=== PATIENT | female | born 1990 | race Caucasian/White ===

== ENCOUNTER 2016-10-08 21:50 | Outpatient (CLI) | payer MEDICAID, OTHER ==
[~2016-10-08] VITALS: Ht 165.1 cm; Wt 100.3 kg
[~2016-10-08 21:50] MED LIST: FERR134T PO; FOLI0.8C PO; LABE100T3 PO; PRENAT PO
[2016-10-08 22:14] VITALS: BP 107/66; PULSE 94; Ht 165.1 cm; Wt 100.3 kg
[2016-10-08 23:01] LABS: ADD UMIC NO; URINE BILIRUBIN (Dip) NEGATIVE (NEGATIVE); URINE BLOOD (Dip) NEGATIVE (NEGATIVE); URINE COLOR LT. YELLOW (YELLOW); URINE GLUCOSE (Dip) NEGATIVE (NEGATIVE); URINE KETONES (Dip) NEGATIVE (NEGATIVE); URINE LEUKOCYTE ESTERASE (Dip) NEGATIVE (NEGATIVE); URINE NITRITE (Dip) NEGATIVE (NEGATIVE); URINE TOTAL PROTEIN (Dip) NEGATIVE (NEGATIVE); URINE UROBILINOGEN (Dip) 0.2 E.U./dL (0.1-1.0)
--- NOTE | 2016-10-08 23:32 | RADRPT ---
PROCEDURE: OB ultrasound CLINICAL INDICATION: . OB ultrasound with evaluation of the placenta TECHNIQUE: Transabdominal obstetrical ultrasound performed for evaluation of the placenta. COMPARISON: 08/04/2016 FINDINGS: heart rate: 133 Beats per minute. Presentation: Cephalic Placenta: anterior without evidence of abruption or previa Cervix measures 3.4 cm as visualized transabdominally. IMPRESSION: No evidence of placental abruption or previa. Cervix measures 3.4 cm as visualized transabdominally. RPTAT: AADD .Duane Joe MD, MD Date Time Electronically viewed and signed by .Duane Joe MD, MD on 10/08/2016 23:32 .B/
--- NOTE | 2016-10-08 23:58 | TRIAGE ---
OB Triage Datetime Report Generated by CPN: 10/08/2016 23:58 Datetime: 10/08/2016 23:38 Labor Evaluation Frequency: 0 Monitor Mode: External Resting Tone [place]: Relaxed Heart Rate FHR Baseline Rate: 130 Monitor Mode: External US Variability: Moderate 6-25 bpm Accelerations: 10X10 (Annotations: APPROPRIATE FOR GESTATIONAL AGE) Decelerations: None Category: Category I Datetime: 10/08/2016 23:00 Stage of : OB Triage Heart Rate FHR Baseline Rate: 135 Monitor Mode: External US Variability: Moderate 6-25 bpm Accelerations: 15X15 Decelerations: None Category: Category I Datetime: 10/08/2016 22:59 Comments: MONITORS APPLIED Datetime: 10/08/2016 22:28 Monitor Mode: External US Datetime: 10/08/2016 22:06 Stage of : OB Triage Assessment Type: Triage Maternal Assessment Level of Consciousness: Fully Conscious DTR's/Clonus: DTRs 2+; No Clonus Headache: Denies Blurred Vision: No Respiratory Effort: Unlabored; Regular Rhythm; Equal Expansion Breath Sounds, Left: Clear and Equal Breath Sounds, Right: Clear and Equal Nausea/Vomiting: Denies RUQ Epigastric Pain: Denies Lower Extremities Edema: None Degree: None Upper Extremities Edema: None Degree: None Facial Edema: None Temperature Route: Oral Fall Risk Assessment History of Falling: (0) No Secondary Diagnosis: (0) No Ambulatory Aid: (0) Bedrest/Nurse Assist IV Therapy: (0) No Gait: (0) Normal/Bedrest/Immobile Mental Status: (0) Oriented to Own Ability Fall Score: 0 Fall Risk Score Definition: No Risk: No action required Pain Assessment Pain Scale: 9 Pain Presence: Constant Pain Type: Sharp Pain Location: mid chest Pain Goal: 4 Pain Relief Measures: Comfort Measures Datetime: 10/08/2016 22:04 Comments: MONITORS PLACED Datetime: 10/08/2016 21:45 Time of Arrival: 10/08/2016 21:45 EGA: 29.2 Arrived By: Wheelchair Arrived From: Emergency Dept Chief Complaint: SOB, Chest pain since 1729, epigastric pain, N/V for 4 days Movement: Present Contractions: Denies/Absent Rupture of Membranes: Denies Vaginal Bleeding: None Vaginal Discharge: Denies Recent Sexual Intercouse: Denies Abdominal Trauma: Not Applicable Patient Complaints: Nausea; Vomiting; Epigastric Pain; Shortness of Breath Additional Patient Complaints: Pt states she has CHTN has not taken meds since a month ago, metal taste Time Provider Notified: 10/08/2016 22:17 Provider Notified: EDAN Initial Plan: EFM Datetime: 08/05/2016 01:00 Vaginal Exam Membrane Status: Intact Datetime: 08/05/2016 00:48 Stage of : OB Triage Monitor Mode: External Pattern: Normal: <= 5 Contractions in 10 Minutes Resting Tone [place]: Relaxed Datetime: 08/05/2016 00:07 EGA: 20.1
[2016-10-09] MEDS ORDERED: ACET500C5 PO (03:51)
== END 2016-10-08 23:53 | disposition home or self-care (01) ==
LOC: OBT 21:50 → L-D 21:50 → OBT 23:53
PROVIDERS: ATTEND Obstetrics & Gynecology Obstetrics
DX: O60.03 Preterm labor without delivery, third trimester (principal); Z3A.29 29 weeks gestation of pregnancy
CPT/HCPCS: 76817; 81003; Z7500; G0463

== ENCOUNTER 2016-10-09 00:02 | Emergency (ER) | payer OTHER ==
[~2016-10-09] VITALS: Ht 160 cm; Wt 99.4 kg
[2016-10-09 00:12] VITALS: Ht 160 cm; Wt 99.4 kg
--- NOTE | 2016-10-09 03:22 | QN ---
Documentation Comment 26-year-old female with at 28 weeks presented with complaint of chest pain as well as epigastric pain and nausea and vomiting for the last 4 days as well as diarrhea. Patient reports that pain started today for the last 2 hours. Pain is constant and sharp pain with no radiation to the jaw or arm or back. She also reports [place] tasting in the mouth. Denies any burning sensation in her throat sore sour tasting in her mouth. She also complaining of epigastric pain. Nausea and vomiting and diarrhea has been going on for the last 4 days. She denies any leaking of fluid and decreased movement vaginal bleeding. Patient reports that she conceived with IUD and IUD could not be removed during . She denies any fever or chills. Physical examination: General appearance, alert and oriented 4 in mild to moderate distress. Abdomen: Soft, nontender, no rebound tenderness, no guarding no rigidity, Fundal height consistent with gestational age. NSC category 1. No contraction on the monitor PROCEDURE: OB ultrasound CLINICAL INDICATION: . OB ultrasound with evaluation of the placenta TECHNIQUE: Transabdominal obstetrical ultrasound performed for evaluation of the placenta. COMPARISON: 08/04/2016 FINDINGS: heart rate: 133 Beats per minute. Presentation: Cephalic Placenta: anterior without evidence of abruption or previa Cervix measures 3.4 cm as visualized transabdominally. IMPRESSION: No evidence of placental abruption or previa. Cervix measures 3.4 cm as visualized transabdominally. RPTAT: AADD Oxygen saturation 99 in room air. Pulse rate 90s. Assessment IUP at 28 weeks with IUD. No evidence of labor contractions are PPROM. Nausea and vomiting and diarrhea for the past 4 days. Afebrile. Likely viral gastroenteritis. Chest pain with epigastric pain. Chest pain is sharp, nonradiating. Very unlikely to be cardiac Patient will be sent to emergency room for further evaluation for above symptoms. Plan: Patient was referred to emergency room after reactive NST for further evaluation of chest pain and above symptoms labor precautions and kick count discussed If he sees from emergency room follow-up in a couple of days with her own OB recommended. CARLO MORAN MD Oct 09, 2016 03:22
[2016-10-09] MEDS ORDERED: ACET500C5 PO (03:51)
[2016-10-09 04:08] VITALS: BP 118/70; PULSE 78; RESP 20; TEMP 98.2
--- NOTE | 2016-10-09 20:58 | ERD ---
ER Documentation Chief Complaint Date/Time DATE: 10/09/16 TIME: 20:55 Chief Complaint chest pain x 2 days, 29 weeks ,cleared from L&D HPI Patient is a 26 year old , 29 week female who presents to the ED with chest pain x 2 days. She states she was folding laundry and developed pain in her mid chest. She describes the pain as sharp that does not radiate to jaw, arm or back. She states that the pain comes and goes. She states the pain is alleviated on its own and was gone after 20 min. She denies any trauma or triggering factors. She states that the pain came back from 5pm-6pm. She denie shortness of breath or difficulty breathing. She denies headache, dizziness, numbness, tingling. She denies leg pain, swelling, recent travel or recent surgeries. She denies abdominal pain, nausea, vomiting, sweats, chills, diarrhea. She denies vaginal bleeding, pelvic cramps. She states she was cleared from Labor and delivery prior to coming to the ED. ROS All systems reviewed and are negative except as per history of present illness. Medications Home Meds Active Scripts Acetaminophen* (Tylophen*) 500 Mg Capsule, 1 CAP PO Q6H Y for PAIN AND OR ELEVATED TEMP, #20 CAP Prov:YAZMIN JOE PA-C 10/09/16 Reported Medications Labetalol Hcl* (Labetalol Hcl*) 100 Mg Tablet, 100 MG PO DAILY, TAB 08/05/16 Folic Acid (Folic Acid) 0.8 Mg Capsule, 0.8 MG PO, CAP 08/05/16 Ferrous Sulfate (Iron) 134 Mg Tablet, 134 MG PO, TAB 08/05/16 Multivit/Min/Fol Ac/Iron/Pren* ( S*) 1 Tab Tab, 1 TAB PO DAILY, TAB 08/05/16 Allergies Allergies: Coded Allergies: No Known Allergy (Verified , 10/08/16) PMhx/Soc History of Surgery: Yes (CSECTIONS X3) Anesthesia Reaction: No Hx Neurological Disorder: No Hx Respiratory Disorders: No Hx Cardiac Disorders: Yes (htn) Hx Psychiatric Problems: No Hx Miscellaneous Medical Probl: Yes (ovarian cyst) Hx Alcohol Use: No Hx Substance Use: No Hx Tobacco Use: No Smoking Status: Never smoker FmHx Family History: No coronary disease, No diabetes, No other Physical Exam Vitals Vital Signs Date Time Temp Pulse Resp B/P Pulse Ox O2 Delivery O2 Flow Rate FiO2 10/09/16 04:08 98.2 78 20 118/70 99 10/09/16 00:12 98.3 86 20 123/79 99 Physical Exam GENERAL: Well-developed, well-nourished female. Appears in no acute distress. HEAD: Normocephalic, atraumatic. EYES: Pupils are equally reactive bilaterally. EOMs grossly intact. No conjunctival erythema. ENT: Moist mucous membranes. No uvula deviation. No kissing tonsils. No exudates. NECK: Supple. No lymphadenopathy or thyromegaly. No meningismus. negative kernig. negative brudinski. LUNG: Clear to auscultation bilaterally. No rhonchi, wheezing, rales or coarse breath sounds. tenderness to sternum with light touch. no stepoffs, deformities , erythema or swelling. no signs of infection. HEART: Regular rate and rhythm. No murmurs, rubs or gallops. ABDOMEN: No scars, ecchymosis or rashes noted. Soft, nontender, and nondistended. Positive bowel sounds in all four quadrants. No rebound tenderness , no guarding. (-) McBurneys point tenderness. No CVA tenderness. BACK: No midline tenderness. Extremities: Equal pulses bilaterally. No peripheral clubbing, cyanosis or edema. No unilateral leg swelling. NEUROLOGIC: Alert and oriented. Moving all four extremities. 5/5 strength in all extremities. Normal speech. Steady gait. SKIN: Normal color. Warm and dry. No rashes or lesions. Capillary refill < 2 seconds Procedures/MDM ER COURSE: I kept the patient and/or family informed of laboratory and diagnostic imaging results throughout the emergency room course. EKG: EKG performed, read by Dr. Zuleta 88bpm, normal sinus rhythm, normal axis, no acute ST segment changes, no T wave inversion MEDICAL DECISION MAKING: This is a 26-year-old female who is , 29 weeks who presents with chest pain. Vital signs were reviewed. Patient is afebrile. Patient is not hypoxic. Patient is not toxic or ill-appearing. Patient has tenderness on examination of her sternum. Tenderness with palpation. I have low suspicion for any cardiac emergency. I spoke with Dr. Zuleta regarding patient and no chest x-ray was ordered. Dr. Zuleta reviewed her EKG and history. Patient likely has chest wall strain. Low suspicion for ACS, PE, AAA, dissection, DVT. I have low suspicion for infection, cellulitis, dislocation, fracture, obstruction. Patient's heart score is 0. PERC Criteria Assessment: Age > 50: No HR > 100: No 02 < 95%: No H/o DVT/PE: No Recent trauma/surgery: No Hemoptysis: No Exogenous Estrogen: No Unilateral Leg swelling: No Pretest probability > 15%: No [Less than 2% risk of PE. No further work up is necessary] DISCHARGE: At this time, patient is stable for discharge and outpatient management with no new complaints during the ER course. Patient was sent home with Tylenol and to follow-up with her OB doctor this week.. Patient will be discharged home with instructions to recheck for new or worsening symptoms such as fever, nausea, weakness, LOC and to follow up with primary care in the next 1-2 days. Patient was advised to return to the ER for any new or worsening symptoms. Plan was discussed and patient and/or family understands and agrees. Home instructions were given. Departure Diagnosis: Primary Impression: Chest wall pain Condition: Stable Patient Instructions: Chest Wall Pain, Costochondritis Additional Instructions: RETURN to the ER if symptoms worsen such as shortness of breath, difficulty breathing, leg pain, swelling. Call your primary care doctor TOMORROW for an appointment during the next 1-2 days.See the doctor sooner or return here if your condition worsens before your appointment time. YAZMIN JOE PA-C Oct 09, 2016 20:58
== END 2016-10-09 04:09 | disposition home or self-care (01) ==
LOC: FTE 00:02
DX: O99.89 Other specified diseases and conditions complicating pregnancy, childbirth and the puerperium (principal); O10.013 Pre-existing essential hypertension complicating pregnancy, third trimester; R07.89 Other chest pain; Z3A.29 29 weeks gestation of pregnancy
CPT/HCPCS: 93005; Z7502

== ENCOUNTER 2016-11-23 17:34 | Outpatient (CLI) | payer OTHER ==
[~2016-11-23] VITALS: Ht 165.1 cm; Wt 100.0 kg
[~2016-11-23 17:34] MED LIST changes: +ACET500C5 PO
[2016-11-23 17:38] VITALS: Ht 165.1 cm; Wt 100.0 kg
[2016-11-23] MEDS ORDERED: LABE100T3 PO (17:54)
[2016-11-23 18:29] LABS: ADD SCAN DIFF NO
[2016-11-23 18:34] LABS: BASOPHILS % 0.2 % (0.0-2.0); EOSINOPHILS # 0.1 10^3/ul (0.0-0.5); EOSINOPHILS % 1.7 % (0.0-7.0); HEMATOCRIT 33.8 % (37.0-47.0); HEMOGLOBIN 10.9 g/dl (12.0-16.0); LYMPHOCYTES # 1.8 10^3/ul (0.8-2.9); LYMPHOCYTES % 21.6 % (15.0-51.0); MEAN CORPUSCULAR HEMOGLOBIN 28.5 pg (29.0-33.0); MEAN CORPUSCULAR HGB CONC 32.2 g/dl (32.0-37.0); MEAN CORPUSCULAR VOLUME 88.3 fl (82.0-101.0); MEAN PLATELET VOLUME 9.6 fl (7.4-10.4); MONOCYTE # 0.8 10^3/ul (0.3-0.9); MONOCYTES % 9.7 % (0.0-11.0); NEUTROPHIL # 5.6 10^3/ul (1.6-7.5); NEUTROPHILS % 66.3 % (39.0-77.0); PLATELET COUNT 253 10^3/UL (140-415); RED BLOOD COUNT 3.83 10^6/ul (4.20-5.40); RED CELL DISTRIBUTION WIDTH 13.7 % (11.5-14.5); WHITE BLOOD COUNT 8.4 10^3/ul (4.8-10.8)
[2016-11-23 18:45] LABS: ADD UMIC NO; URINE BILIRUBIN (Dip) NEGATIVE (NEGATIVE); URINE BLOOD (Dip) NEGATIVE (NEGATIVE); URINE COLOR LT. YELLOW (YELLOW); URINE GLUCOSE (Dip) NEGATIVE (NEGATIVE); URINE KETONES (Dip) NEGATIVE (NEGATIVE); URINE LEUKOCYTE ESTERASE (Dip) NEGATIVE (NEGATIVE); URINE NITRITE (Dip) NEGATIVE (NEGATIVE); URINE TOTAL PROTEIN (Dip) NEGATIVE (NEGATIVE); URINE UROBILINOGEN (Dip) 0.2 E.U./dL (0.1-1.0)
[2016-11-23] MEDS ORDERED: TERBUTALINE 1 ML ONE (20:10)
[2016-11-23] MEDS ORDERED: LACTATED RINGER'S 1,000 ML IV ONE (21:00)
[2016-11-23] MEDS ORDERED: LACTATED RINGER'S 1,000 ML IV SCH (22:00)
[2016-11-23] MEDS ORDERED: NIFEdipine 10 MG CAP PO ONE (23:00)
[2016-11-23] MEDS: TERBUTALINE 1 MG/ML INJ SC PRN ×2 (23:17→23:19)
[2016-11-24] MEDS ORDERED: LORATADINE 10 MG TAB PO STA (00:47)
[2016-11-24] MEDS ORDERED: NIFEdipine 10 MG CAP PO ONE (01:10)
--- NOTE | 2016-11-24 01:19 | QN ---
Documentation Comment Laborist 26 y.o. A1 with an IUP at 35w3d c/o UC's and possible leaking? No VB. +FM. PMHx: HTN predating . PSHx: C/S x 3. NKDA. Meds: Labetalol 100 BID BP 122/81. T=98.5 SVE thick.closed/high. ROM-PLUS negative. NST baseline 140 bpm with accels to 165 bpm. No decels. UC's were q 2-4 minutes apart and now q 15 minutes after 2 doses of terbutaline and one 20mg dose of Procardia. A: IUP at 35w 3d. Previous C/S x 3. False labor. P: D/C home with a Rx for Procardia 10mg QID x 1 week. Pt is not to take her Labetalol at the same time but may restart once the Procardia is completed. JESSICA SORIANO MD Nov 24, 2016 01:17
== END 2016-11-24 01:40 | disposition home or self-care (01) ==
LOC: L-D 17:34 → OBT 17:34
PROVIDERS: ATTEND Obstetrics & Gynecology
DX: O47.03 False labor before 37 completed weeks of gestation, third trimester (principal); O10.913 Unspecified pre-existing hypertension complicating pregnancy, third trimester; O34.211 Maternal care for low transverse scar from previous cesarean delivery; Z3A.35 35 weeks gestation of pregnancy
CPT/HCPCS: 81003; 84112; 85025; 96360; 96361; 96372; J3105; J7120; Z7500; Z7610; G0463

== ENCOUNTER 2016-12-03 01:00 | Inpatient (IN) | payer OTHER ==
[~2016-12-03] VITALS: Ht 165.1 cm; Wt 102.5 kg
[2016-12-03 01:36] VITALS: Ht 165.1 cm; Wt 102.5 kg
[2016-12-03] MEDS ORDERED: LACTATED RINGER'S 1,000 ML IV ONE (02:00)
[2016-12-03 02:04] VITALS: BP 121/80; PULSE 96; RESP 18
[2016-12-03] MEDS: LACTATED RINGER'S 1,000 ML IV SCH ×3 (02:51→17:54)
[2016-12-03] MEDS ORDERED: CEFAZOLIN 2 GM/50 ML (PMX) 50 ML IV PRN (03:30)
[2016-12-03] MEDS ORDERED: OXYTOCIN 30 UNITS/LR 500 ML IV PRN ×2 (03:30→13:30)
[2016-12-03] MEDS ORDERED: MAGNESIUM SULFATE 4 GM/100 ML 100 ML IV SCH (03:30)
[2016-12-03] MEDS ORDERED: METHYLERGONOVINE 0.2 MG INJ IM PRN ×2 (03:30→13:30)
[2016-12-03] MEDS ORDERED: MISOPROSTOL 200 MCG TAB PR PRN ×2 (03:30→13:30)
[2016-12-03] MEDS ORDERED: OXYTOCIN 30 UNITS/LR 500 ML IV SCH (03:30)
[2016-12-03] MEDS ORDERED: CARBOPROST 250 MCG INJ IM PRN ×2 (03:30→13:30)
[2016-12-03] MEDS ORDERED: MAGNESIUM SULFATE 20 GM/500 ML 500 ML IV SCH (04:00)
--- NOTE | 2016-12-03 04:14 | TRIAGE ---
OB Triage Datetime Report Generated by CPN: 12/03/2016 04:14 Datetime: 12/03/2016 03:15 Stage of : OB Triage Datetime: 12/03/2016 03:14 Stage of : OB Triage Datetime: 12/03/2016 01:28 Vaginal Exam Dilatation (cms): 0.0 Effacement (%): 0 Station: -3 Exam By: Dr. Vicente Membrane Status: Intact Datetime: 12/03/2016 01:20 Time of Arrival: 12/03/2016 01:00 EGA: 36.6 Arrived By: Wheelchair Arrived From: Other Unit in Hospital Chief Complaint: UC's Movement: Present Contractions: Regular Time Contractions Began: 12/02/2016 20:00 Contractions: Every 5-10 minutes Rupture of Membranes: Denies Vaginal Bleeding: None Vaginal Discharge: Denies Recent Sexual Intercouse: Denies Abdominal Trauma: Not Applicable Patient Complaints: Contractions Initial Plan: EFM, IV HYDRATION Datetime: 12/03/2016 01:14 Stage of : OB Triage Assessment Type: Triage Maternal Assessment Level of Consciousness: Fully Conscious DTR's/Clonus: DTRs 2+; No Clonus Headache: Denies Blurred Vision: No Respiratory Effort: Unlabored; Regular Rhythm; Equal Expansion Breath Sounds, Left: Clear and Equal Breath Sounds, Right: Clear and Equal Nausea/Vomiting: Denies RUQ Epigastric Pain: Denies Lower Extremities Edema: None Degree: None Upper Extremities Edema: None Degree: None Facial Edema: None Temperature Route: Oral Fall Risk Assessment History of Falling: (0) No Secondary Diagnosis: (0) No Ambulatory Aid: (0) Bedrest/Nurse Assist IV Therapy: (0) No Gait: (0) Normal/Bedrest/Immobile Mental Status: (0) Oriented to Own Ability Fall Score: 0 Fall Risk Score Definition: No Risk: No action required Pain Assessment Pain Scale: 7 Pain Presence: Intermittent Pain Type: Cramping Pain Location: Abdomen Datetime: 11/24/2016 01:06 Stage of : OB Triage Labor Evaluation Frequency: 2-14 Monitor Mode: External Duration (sec)2399: 50-90 Quality: Mild Resting Tone [place]: Relaxed Heart Rate FHR Baseline Rate: 135 Monitor Mode: External US Variability: Moderate 6-25 bpm Accelerations: 15X15 Decelerations: None Category: Category I Datetime: 11/24/2016 01:03 Stage of : OB Triage Datetime: 11/24/2016 00:47 Stage of : OB Triage Datetime: 11/23/2016 23:11 Vaginal Exam Dilatation (cms): 0.0 Effacement (%): 0 Station: -3 Exam By: M.ANDERSON RN Datetime: 11/23/2016 21:17 Stage of : OB Triage Datetime: 11/23/2016 19:04 Labor Evaluation Frequency: 4-6 Monitor Mode: External Duration (sec)2399: 50-70 Quality: Mild Pattern: Normal: <= 5 Contractions in 10 Minutes Resting Tone [place]: Relaxed Heart Rate FHR Baseline Rate: 145 Monitor Mode: External US FHR Baseline Changes: No Baseline Change Variability: Moderate 6-25 bpm Accelerations: 15X15 Decelerations: None Category: Category I Pain Assessment Pain Scale: 7 Pain Presence: Intermittent Pain Type: Cramping Pain Location: Abdomen Pain Relief Measures: Comfort Measures Datetime: 11/23/2016 18:27 Monitor Mode: External Heart Rate FHR Baseline Rate: 150 Monitor Mode: External US FHR Baseline Changes: No Baseline Change Variability: Moderate 6-25 bpm Accelerations: 15X15 Decelerations: None Category: Category I Pain Assessment Pain Scale: 7 Pain Presence: Intermittent Pain Type: Cramping Pain Location: Abdomen; Back Pain Relief Measures: Comfort Measures Datetime: 11/23/2016 17:40 Time of Arrival: 11/23/2016 17:40 EGA: 35.3 Arrived By: Ambulatory Arrived From: Home Chief Complaint: UC'S Movement: Present Contractions: Irregular Rupture of Membranes: Unsure Vaginal Bleeding: None Vaginal Discharge: Present Recent Sexual Intercouse: Denies Abdominal Trauma: Not Applicable Patient Complaints: Contractions; Cramping; Back Pain Time Provider Notified: 11/23/2016 18:14 Provider Notified: SHAMSIAN Initial Plan: UA, CBC, ROM PLUS (Annotations: Data stored by N on behalf of user) Datetime: 10/08/2016 22:06 Nausea/Vomiting: Denies (Annotations: DENIES AT THIS TIME, BUT STATES SHE'S BEEN HAVING N/V X4 DAY S) RUQ Epigastric Pain: Denies (Annotations: PT C/O MIDEPIGASTRIC PAIN) Fall Score: 0 Fall Risk Score Definition: No Risk: No action required Datetime: 10/08/2016 21:45 EGA: 28.6 Datetime: 08/05/2016 00:07 EGA: 19.5
--- NOTE | 2016-12-03 04:16 | TRIAGE ---
OB Triage Datetime Report Generated by CPN: 12/03/2016 04:15 Datetime: 12/03/2016 01:20 Additional Patient Complaints: H/O CHTN Time Provider Notified: 12/03/2016 01:28 Provider Notified: DR. KHALIL
[2016-12-03 04:48] LABS: ADD SCAN DIFF NO
[2016-12-03 04:50] LABS: ADD UMIC NO; URINE BILIRUBIN (Dip) NEGATIVE (NEGATIVE); URINE BLOOD (Dip) NEGATIVE (NEGATIVE); URINE COLOR LT. YELLOW (YELLOW); URINE GLUCOSE (Dip) NEGATIVE (NEGATIVE); URINE KETONES (Dip) TRACE (NEGATIVE); URINE LEUKOCYTE ESTERASE (Dip) NEGATIVE (NEGATIVE); URINE NITRITE (Dip) NEGATIVE (NEGATIVE); URINE TOTAL PROTEIN (Dip) NEGATIVE (NEGATIVE); URINE UROBILINOGEN (Dip) 0.2 E.U./dL (0.1-1.0)
[2016-12-03 04:53] LABS: BASOPHILS % 0.2 % (0.0-2.0); EOSINOPHILS # 0.1 10^3/ul (0.0-0.5); HEMATOCRIT 33.6 % (37.0-47.0); HEMOGLOBIN 11.4 g/dl (12.0-16.0); LYMPHOCYTES # 2.5 10^3/ul (0.8-2.9); LYMPHOCYTES % 26.5 % (15.0-51.0); MEAN CORPUSCULAR HEMOGLOBIN 29.3 pg (29.0-33.0); MEAN CORPUSCULAR HGB CONC 33.9 g/dl (32.0-37.0); MEAN CORPUSCULAR VOLUME 86.4 fl (82.0-101.0); MEAN PLATELET VOLUME 9.7 fl (7.4-10.4); MONOCYTE # 0.6 10^3/ul (0.3-0.9); MONOCYTES % 6.4 % (0.0-11.0); NEUTROPHIL # 6.2 10^3/ul (1.6-7.5); NEUTROPHILS % 65.3 % (39.0-77.0); PLATELET COUNT 286 10^3/UL (140-415); RED BLOOD COUNT 3.89 10^6/ul (4.20-5.40); RED CELL DISTRIBUTION WIDTH 13.5 % (11.5-14.5); WHITE BLOOD COUNT 9.4 10^3/ul (4.8-10.8)
[2016-12-03 05:15] LABS: INR 0.94; PROTIME 12.6 Sec (12.2-14.2)
[2016-12-03] MEDS ORDERED: morphine SULFATE/PF (10 MG/10 ML) INJ ONE (08:40)
[2016-12-03] MEDS ORDERED: FENTAnyl 50 MCG/ML VIAL ONE (08:40)
[2016-12-03] MEDS ORDERED: EPHEDrine SULFATE 50 MG/5 ML SYG ONE (08:40)
[2016-12-03] MEDS ORDERED: PHENYLephrine (100 MCG/ML) 5ML SYG ONE ×3 (08:40→09:39)
[2016-12-03] MEDS ORDERED: DEXAMETHASONE 4 MG/ML 1 ML INJ ONE (08:57)
[2016-12-03] MEDS ORDERED: ONDANSETRON 4 MG INJ ONE (08:57)
[2016-12-03] MEDS ORDERED: OXYTOCIN 30 UNITS/LR 500 ML IV ONE ×2 (09:05→09:55)
--- NOTE | 2016-12-03 09:09 | HP ---
Date/Time of Note Date/Time of Note DATE: 12/03/16 TIME: 09:01 OB - History Hx of Present Free Text/Dictation /This is a 26 years old female 5 para 3 IAB 1 EDC of December 25, 2069 history of previous 3 section request for bilateral tubal ligation admitted to [facility] in active labor being prepared to undergo repeat for the fourth time and bilateral tubal ligation this patient has been under the care of [facility] and her course was uncomplicated SIMONIZER history [place] at age 12 history of 3 previous section one induced other surgery or hospitalization Family history unremarkable Review of system within normal Physical examination 5 feet 5 228 pounds temperature 97.9 pulse of 92 respiration 18 blood pressure 123/65 Head ears nose and throat negative Neck supple no thyromegaly Lungs clear to P&A Heart normal sinus rhythm no murmur Abdomen fundal height 37 cm from symphysis pubis with heart rate in 130s category 1 tracing contraction every 3-4 minutes Pelvic examination deferred Extremities no edema no varicosities Impression intrauterine at 36 weeks 6/7 history of 3 previous section request for voluntary sterilization bilateral tubal ligation Patient is counseled regarding failure rate of tubal ligation increased risk of ectopic future failure to conceive also complication of the surgery including bowel bladder injury infection hemorrhage and hematomas and she is willing to go ahead with this procedure. Estimated Due Date: December 25, 2016 : 5 Para: 3 Therapeutic : 1 Care: Good Care Ultrasounds: Normal mid trimester US Obstetrical Complications: None Medical Complications: None Past Family/Social History * Past Medical, Surgical, Family and Obstetric Histories reviewed from chart. Rubella: immune RPR/VDRL: Negative GBS Status: Negative OB Admission Exam Vital Signs Vital Signs Vital Signs Date Time Temp Pulse Resp B/P Pulse Ox O2 Delivery O2 Flow Rate FiO2 12/03/16 02:04 97.9 96 18 121/80 Room Air Physical Exam Heart: Rhythm Normal Lungs: Clear, Equal Reflexes: Normal Cervical Dilatation: 1cm Effacement: 25% Station: -2 Membranes: Intact Heart Rate: 130's Accelerations: Accelerations Present Varibility: Marked Contractions on Admission: < 5 Minutes Apart Intensity: Moderate Last 72 hours Lab Results CBC & BMP 12/03/16 01:50 GUSTAVO DICKSON MD Dec 03, 2016 09:09
[2016-12-03 09:10] LABS: BARBITURATES Negative (NEGATIVE); BENZODIAZEPINES Negative (NEGATIVE); CANNABINOIDS Negative (NEGATIVE); COCAINE Negative (NEGATIVE); OPIATES Negative (NEGATIVE)
[2016-12-03 11:00] LABS: ADD SCAN DIFF NO
[2016-12-03] MEDS ORDERED: PROCHLORPERAZINE 10 MG INJ IV PRN (11:00)
[2016-12-03] MEDS ORDERED: HYDROmorphONE 1 MG/ML SYG IV PRN (11:00)
[2016-12-03] MEDS ORDERED: NALOXONE (0.4 MG/ML) INJ IV PRN (11:00)
[2016-12-03] MEDS ORDERED: ONDANSETRON 4 MG INJ IV PRN (11:00)
[2016-12-03] MEDS ORDERED: ZOLPIDEM 5 MG TAB PO PRN (11:00)
[2016-12-03 11:03] LABS: BASOPHILS % 0.1 % (0.0-2.0); EOSINOPHILS % 0.5 % (0.0-7.0); HEMATOCRIT 30.5 % (37.0-47.0); HEMOGLOBIN 10.1 g/dl (12.0-16.0); LYMPHOCYTES # 1.3 10^3/ul (0.8-2.9); LYMPHOCYTES % 14.2 % (15.0-51.0); MEAN CORPUSCULAR HEMOGLOBIN 28.9 pg (29.0-33.0); MEAN CORPUSCULAR HGB CONC 33.1 g/dl (32.0-37.0); MEAN CORPUSCULAR VOLUME 87.4 fl (82.0-101.0); MEAN PLATELET VOLUME 9.8 fl (7.4-10.4); MONOCYTE # 0.3 10^3/ul (0.3-0.9); MONOCYTES % 3.8 % (0.0-11.0); NEUTROPHIL # 7.2 10^3/ul (1.6-7.5); NEUTROPHILS % 80.6 % (39.0-77.0); PLATELET COUNT 246 10^3/UL (140-415); RED BLOOD COUNT 3.49 10^6/ul (4.20-5.40); RED CELL DISTRIBUTION WIDTH 13.5 % (11.5-14.5); WHITE BLOOD COUNT 8.9 10^3/ul (4.8-10.8)
[2016-12-03] MEDS: DIPHENHYDRAMINE 50 MG INJ IV PRN (11:10)
--- NOTE | 2016-12-03 11:16 | OPR ---
DATE OF OPERATION: 12/03/2016 PREOPERATIVE DIAGNOSES: 1. Intrauterine at 36 weeks and 6 days. 2. History of 3 previous sections. 3. Request for voluntary sterilization, bilateral tubal ligation. 4. In active labor. POSTOPERATIVE DIAGNOSES 1. Intrauterine at 36 weeks and 6 days. 2. History of 3 previous sections. 3. Request for voluntary sterilization, bilateral tubal ligation. 4. In active labor. PROCEDURE: Repeat transverse low cervical section (bilateral tubal ligation). SURGEON: Gustavo Steven MD INTERNET SPECIALIST: Aislinn Gonzalez MD ANESTHESIA: Spinal. ANESTHESIOLOGIST: Dr. Parekh FINDINGS: Live baby boy, 9 and 9. DETAILS OF THE PROCEDURE: Under satisfactory spinal anesthesia, the patient was prepped and draped and placed in supine position, tilted to the left. Pfannenstiel incision was made. Old scar was re moved. Incision carried through the subcutaneous tissue. Bleeders brought under control with elect rocautery. Fascia incised to the length of the incision. Rectus muscle divided in midline. Perito neum exposed, entered through a transverse incision. Exploration of abdomen revealed a gravid uteru s, extremely thinned out lower segment of the uterus with normal appearing tubes and ovaries. Bladder flap was developed. Transverse incision was made in the lower segment of the uterus. Amnio tic sac ruptured. Clear amniotic fluid noted. Live baby boy was delivered from unengaged vertex. Nasal oropharyngeal suction was performed. Baby handed to the team for immediate attention . Patient received 20 units of Pitocin. Since placenta was low-lying and anterior to the baby's he ad, it was considered a partial placenta previa. Placenta sent to pathology. Uterine cavity cleane d with wet sponge and drainage established. Uterus closed in 2 layers using Monocryl #1 in continuo us fashion. Peritoneal cavity irrigated with warm saline. Sponge, needle and instrument reported t o be correct. Bilateral tubal ligation performed by identifying the ampullar section of the right fallopian tube w hich was grasped by a [place]. Suture material used #0 plain catgut was reinforced with the same moura ture material. The top of the loop 3/4 of inch was excised. The cut end of the tube was cauterized and the specimen submitted to pathology. On the opposite side there was a small paraovarian cyst w hich was excised and sent to the pathologist. Fallopian tube was grasped by a [place]. Suture mate rial used #0 plain catgut was reinforced with the same suture material and a portion of the tube was excised and the cut end of the tube was cauterized and the specimens sent to pathology. Peritoneal cavity irrigated with warm saline. Sponge, needle and instrument reported to be correct. Abdominal peritoneum closed with 2-0 chromic catgut continuously. Rectus muscle approximated with 3 interrupted 2-0 chromic catgut. Fascia closed with #1 PDS in a continuous fashion. Subcutaneous tissue irrigated with warm saline and approximated with interrupted 2-0 chromic catgut. Skin close d with evelyne. Estimated blood loss 600 mL. Urine bag contained 200 mL of clear urine. Patient t olerated procedure well, transferred to recovery room in a good condition. Dictated By: GUSTAVO LONG/KAYLI Conf#: [id number] DID#: [id number]
[2016-12-03 11:17] LABS: POTASSIUM 3.7 mmol/L (3.5-5.1)
[2016-12-03 11:19] LABS: ALBUMIN/GLOBULIN RATIO 0.9; BILIRUBIN,INDIRECT 0.2 mg/dl (0-1.1); BILIRUBIN,TOTAL 0.2 mg/dl (0.2-1.3); CREATININE 0.56 mg/dl (0.44-1.00); TOTAL PROTEIN 6.3 g/dl (6.1-8.1)
[2016-12-03 11:20] LABS: CALCIUM 7.8 mg/dl (8.4-10.2); URIC ACID 4.5 mg/dl (3.1-7.9)
[2016-12-03 11:43] LABS: ADD UMIC YES; URINE BILIRUBIN (Dip) NEGATIVE (NEGATIVE); URINE BLOOD (Dip) 1+ (NEGATIVE); URINE COLOR LT. YELLOW (YELLOW); URINE GLUCOSE (Dip) NEGATIVE (NEGATIVE); URINE KETONES (Dip) 40 (NEGATIVE); URINE LEUKOCYTE ESTERASE (Dip) NEGATIVE (NEGATIVE); URINE NITRITE (Dip) NEGATIVE (NEGATIVE); URINE TOTAL PROTEIN (Dip) NEGATIVE (NEGATIVE); URINE UROBILINOGEN (Dip) 0.2 E.U./dL (0.1-1.0)
[2016-12-03] MEDS: KETOROLAC 30 MG INJ IV PRN ×2 (12:21→20:24)
[2016-12-03 12:50] VITALS: BP 106/58; PULSE 70; RESP 18
[2016-12-03 13:03] LABS: BACTERIA,URINE MODERATE; MUCUS,URINE MANY
[2016-12-03] MEDS ORDERED: ACETAMINOPHEN/CODEINE #3 TAB PO PRN ×2 (13:30)
[2016-12-03] MEDS ORDERED: CEFAZOLIN 1 GM/50 ML (PMX) 50 ML IVPB SCH ×2 (13:30→17:30)
[2016-12-03] MEDS: LANOLIN 7 GM TUBE TOP PRN (15:29)
[2016-12-03] MEDS: OXYTOCIN 30 UNITS/LR 500 ML IV SCH ×3 (15:33→20:55)
[2016-12-03 16:00] VITALS: BP 104/59; PULSE 79; RESP 17
[2016-12-03 20:00] VITALS: BP 114/55; PULSE 89; RESP 20
[2016-12-04 00:25] VITALS: BP 110/60; PULSE 88; RESP 20
[2016-12-04] MEDS: LACTATED RINGER'S 1,000 ML IV SCH ×3 (00:55→18:47)
[2016-12-04] MEDS: OXYTOCIN 30 UNITS/LR 500 ML IV SCH ×6 (00:56→21:06)
[2016-12-04 04:00] VITALS: BP 93/51; PULSE 87; RESP 20
[2016-12-04] MEDS: DIPHENHYDRAMINE 50 MG INJ IV PRN (05:30)
[2016-12-04] MEDS: KETOROLAC 30 MG INJ IV PRN (05:39)
[2016-12-04 08:03] LABS: ADD SCAN DIFF NO
[2016-12-04 08:07] LABS: BASOPHILS % 0.2 % (0.0-2.0); EOSINOPHILS % 0.3 % (0.0-7.0); HEMATOCRIT 26.3 % (37.0-47.0); HEMOGLOBIN 8.6 g/dl (12.0-16.0); LYMPHOCYTES # 2.4 10^3/ul (0.8-2.9); LYMPHOCYTES % 24.8 % (15.0-51.0); MEAN CORPUSCULAR HEMOGLOBIN 28.6 pg (29.0-33.0); MEAN CORPUSCULAR HGB CONC 32.7 g/dl (32.0-37.0); MEAN CORPUSCULAR VOLUME 87.4 fl (82.0-101.0); MEAN PLATELET VOLUME 9.5 fl (7.4-10.4); MONOCYTE # 0.6 10^3/ul (0.3-0.9); MONOCYTES % 6.1 % (0.0-11.0); NEUTROPHIL # 6.5 10^3/ul (1.6-7.5); NEUTROPHILS % 68.1 % (39.0-77.0); PLATELET COUNT 220 10^3/UL (140-415); RED BLOOD COUNT 3.01 10^6/ul (4.20-5.40); RED CELL DISTRIBUTION WIDTH 13.6 % (11.5-14.5); WHITE BLOOD COUNT 9.6 10^3/ul (4.8-10.8)
[2016-12-04 08:24] VITALS: BP 96/54; PULSE 86; RESP 17
[2016-12-04] MEDS: LANOLIN 7 GM TUBE TOP PRN (08:54)
[2016-12-04] MEDS: SENNA/DOCUSATE NA (8.6MG/50MG) TAB PO SCH ×2 (08:54→20:30)
[2016-12-04] MEDS: OXYCODONE/ACETAMINOPHEN (5/325) TAB PO PRN ×3 (11:03→18:49)
[2016-12-04] MEDS: IBUPROFEN 600 MG TAB PO SCH ×3 (12:00→23:38)
[2016-12-04 13:27] LABS: RUBELLA ANTIBODY - IGG 5.03 index
--- NOTE | 2016-12-04 14:17 | PN ---
Date/Time of Note Date/Time of Note DATE: 12/04/16 TIME: 14:13 OB Subjective Subjective Subjective Post day 1 Afebrile vital signs stable abdomen soft incision bowel sounds present patient able to pass flatus lochia moderate extremity normal, during this visit patient mentioned that she has had an IUD in the uterus with regard to the operative findings no IUD was seen in the uterine cavity or in the lower segment of the uterus, pelvic abdominal ultrasound recommended . GUSTAVO DICKSON MD Dec 04, 2016 14:17
[2016-12-04 15:20] VITALS: BP 98/55; PULSE 87; RESP 17
[2016-12-04 20:00] VITALS: BP 121/81; PULSE 74; RESP 19
[2016-12-04] MEDS ORDERED: DIPHENHYDRAMINE 50 MG CAP PO PRN (21:30)
[2016-12-05] MEDS: OXYTOCIN 30 UNITS/LR 500 ML IV SCH ×2 (00:54→05:06)
[2016-12-05] MEDS: OXYCODONE/ACETAMINOPHEN (5/325) TAB PO PRN ×4 (02:25→19:51)
[2016-12-05] MEDS: LACTATED RINGER'S 1,000 ML IV SCH (02:45)
--- NOTE | 2016-12-05 05:16 | RADRPT ---
PROCEDURE: US Pelvis CLINICAL INDICATION: IUD placement, pain TECHNIQUE: Sonographic evaluation of the pelvis was performed utilizing both transabdominal and tr ansvaginal technique. Curved array transabdominal transducer technique as well as a high frequency endovaginal probe was utilized. Images were reviewed on the high-resolution PACS workstation. COMPARISON: No prior studies are available for comparison. FINDINGS: The uterus measures 17.2 x 10.6 x 17.5 cm in dimension. The uterus is anteverted in normal position . The endometrium is thickened heterogeneous measuring 35 mm in diameter. No IUD is identified. IMPRESSION: Expected appearance of the uterus. No IUD is identified. RPTAT: HH .Belem Stewart MD, MD Date Time Electronically viewed and signed by .Belem Stewart MD, on 12/05/2016 05:16 .G/
[2016-12-05] MEDS: IBUPROFEN 600 MG TAB PO SCH ×4 (06:17→23:37)
[2016-12-05 08:30] VITALS: BP 104/68; PULSE 71; RESP 17
[2016-12-05] MEDS: SENNA/DOCUSATE NA (8.6MG/50MG) TAB PO SCH ×2 (09:50→21:00)
--- NOTE | 2016-12-05 10:04 | PN ---
Date/Time of Note Date/Time of Note DATE: 12/05/16 TIME: 10:02 OB Subjective Subjective Subjective Post day 2 Afebrile, vital signs are stable, abdomen soft bowel sounds present no bowel movement incision dry uterus firm lochia normal extremity normal. GUSTAVO DICKSON MD Dec 05, 2016 10:04
[2016-12-05] MEDS ORDERED: NA PHOSPHATE/BIPHOS 133 ML ENEMA PR ONE (10:30)
[2016-12-05 19:51] VITALS: BP 112/68; PULSE 78; RESP 19
[2016-12-06] MEDS: OXYCODONE/ACETAMINOPHEN (5/325) TAB PO PRN (02:59)
[2016-12-06 04:10] VITALS: BP_SYST 112; BP_DIAS 59; BP_DIAS 68; PULSE 61; PULSE 78; RESP 20
[2016-12-06] MEDS: IBUPROFEN 600 MG TAB PO SCH ×2 (05:42→11:28)
[2016-12-06 07:30] VITALS: BP 113/78; PULSE 72; RESP 16
[2016-12-06] MEDS ORDERED: DIPHTH/TET/ACEL PERTUSS (ADULT) 0.5 ML VIAL IM* ONE (09:00)
[2016-12-06] MEDS: SENNA/DOCUSATE NA (8.6MG/50MG) TAB PO SCH (09:34)
--- NOTE | 2016-12-06 09:45 | PD.PPDC ---
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
--- NOTE | 2016-12-06 09:49 | DS ---
Date/Time of Note Date/Time of Note DATE: 12/06/16 TIME: 09:46 Discharge Summary Admission/Discharge Info Admit Date/Time Dec 03, 2016 at 03:14 Discharge Date/Time Afebrile 29/04/2017@10 AM Final Diagnosis at 36 weeks 6 days history of previous C-sections request for bilateral tubal ligation Patient Condition: Good Procedures Repeat bilateral tubal ligation Hx of Present Illness at 36 weeks and 6 days in labor history of previous sections request for bilateral tubal ligation Hospital Course Satisfactory Home Meds Active Scripts Acetaminophen* (Tylophen*) 500 Mg Capsule, 1 CAP PO Q6H Y for PAIN AND OR ELEVATED TEMP, #20 CAP Prov:YAZMIN JOE PA-C 10/09/16 Reported Medications Labetalol Hcl* (Labetalol Hcl*) 100 Mg Tablet, 100 MG PO BID, TAB 11/23/16 Ferrous Sulfate (Iron) 134 Mg Tablet, 134 MG PO, TAB 08/05/16 Discontinued Reported Medications Folic Acid (Folic Acid) 0.8 Mg Capsule, 0.8 MG PO, CAP 08/05/16 Multivit/Min/Fol Ac/Iron/Pren* ( S*) 1 Tab Tab, 1 TAB PO DAILY, TAB 08/05/16 GUSTAVO DICKSON MD Dec 06, 2016 09:49
== END 2016-12-06 16:25 | disposition home or self-care (01) | DRG 765 ==
LOC: OBT 01:00 → L-D 01:00 → OBT 03:14 → L-D 08:37 → PP1 12:48
PROVIDERS: ADMIT Obstetrics & Gynecology; ATTEND Obstetrics & Gynecology
PROC: 0UL70ZZ Occlusion of Bilateral Fallopian Tubes, Open Approach (ICD-10-PCS; 2016-12-03)
PROC: 10D00Z1 Extraction of Products of Conception, Low, Open Approach (ICD-10-PCS; principal; 2016-12-03 09:15)
DX: O34.211 Maternal care for low transverse scar from previous cesarean delivery (principal); O60.14X0 Preterm labor third trimester with preterm delivery third trimester, not applicable or unspecified; O10.92 Unspecified pre-existing hypertension complicating childbirth; Z30.2 Encounter for sterilization; Z3A.36 36 weeks gestation of pregnancy; Z37.0 Single live birth
CPT/HCPCS: 36415; 76856; 80053; 80307; 81001; 81003; 84560; 85025; 85610; 85730; 86592; 86762; 86850; 86870; 86900; 86901; 87340; 88304; 88305; 88307; 90715; 96360; 99464; G0463; J0690; J1100; J1200; J1885; J2274; J2370; J2405; J2590; J3010; J3475; J7120

== ENCOUNTER 2017-03-01 20:51 | Emergency (ER) | payer OTHER ==
[~2017-03-01] VITALS: Ht 165.1 cm; Wt 101.0 kg
[~2017-03-01 20:51] MED LIST changes: -FOLI0.8C PO; -PRENAT PO
[2017-03-01 21:21] VITALS: Ht 165.1 cm; Wt 101.0 kg
[2017-03-01 23:15] LABS: BASOPHILS % 0.4 % (0.0-2.0); EOSINOPHILS # 0.1 10^3/ul (0.0-0.5); EOSINOPHILS % 1.1 % (0.0-7.0); HEMATOCRIT 36.8 % (37.0-47.0); HEMOGLOBIN 12.4 g/dl (12.0-16.0); LYMPHOCYTES # 3.3 10^3/ul (0.8-2.9); LYMPHOCYTES % 41.5 % (15.0-51.0); MEAN CORPUSCULAR HEMOGLOBIN 27.1 pg (29.0-33.0); MEAN CORPUSCULAR HGB CONC 33.7 g/dl (32.0-37.0); MEAN CORPUSCULAR VOLUME 80.3 fl (82.0-101.0); MEAN PLATELET VOLUME 9.4 fl (7.4-10.4); MONOCYTE # 0.6 10^3/ul (0.3-0.9); MONOCYTES % 6.8 % (0.0-11.0); NEUTROPHILS % 49.8 % (39.0-77.0); PLATELET COUNT 364 10^3/UL (140-415); RED BLOOD COUNT 4.58 10^6/ul (4.20-5.40); RED CELL DISTRIBUTION WIDTH 13.4 % (11.5-14.5)
[2017-03-01 23:40] LABS: ALBUMIN 4.6 g/dl (3.3-4.9); ALBUMIN/GLOBULIN RATIO 1.31; BILIRUBIN,INDIRECT 0.1 mg/dl (0-1.1); BILIRUBIN,TOTAL 0.1 mg/dl (0.2-1.3); CALCIUM 10.3 mg/dl (8.4-10.2); CREATININE 0.58 mg/dl (0.44-1.00); POTASSIUM 3.8 mmol/L (3.5-5.1); TOTAL PROTEIN 8.1 g/dl (6.1-8.1)
[2017-03-01 23:58] LABS: ADD UMIC NO; UR ASCORBIC ACID NEGATIVE (NEGATIVE); UR BILIRUBIN (Dip) NEGATIVE (NEGATIVE); UR BLOOD (Dip) NEGATIVE (NEGATIVE); UR CLARITY SLIGHTLY CLOUDY (CLEAR); UR COLOR YELLOW (YELLOW); UR GLUCOSE (Dip) NEGATIVE (NEGATIVE); UR KETONES (Dip) NEGATIVE (NEGATIVE); UR LEUKOCYTE ESTERASE (Dip) NEGATIVE Leu/ul (NEGATIVE); UR NITRITE (Dip) NEGATIVE (NEGATIVE); UR RBC 1 /HPF (0-5); UR SPECIFIC GRAVITY (Dip) 1.027 (1.003-1.030); UR SQUAMOUS EPITHELIAL CELL FEW /HPF (FEW); UR TOTAL PROTEIN (Dip) NEGATIVE (NEGATIVE); UR UROBILINOGEN (Dip) NEGATIVE (NEGATIVE)
--- NOTE | 2017-03-02 00:45 | RADRPT ---
PROCEDURE: ULTRASOUND PELVIS - TRANSABDOMINAL ONLY CLINICAL INDICATION: 26-year-old female with pelvic pain. TECHNIQUE: Multiple sonographic images of the pelvis were obtained utilizing a transabdominal tech nique. The images were reviewed on a PACS workstation. COMPARISON: None. FINDINGS: The uterus is visualized and measures 8.6 x 3.6 x 5.8 cm. The endometrial echo complex is within nor mal limits and measures 8.1 mm. There is no evidence for free fluid. The right ovary has a normal ec hotexture and measures 3.7 x 2.7 x 3.3 cm. There is a right ovarian cyst measuring 2.0 x 2.0 x 2.3 cm. The left ovary has a normal echotexture and measures 3.7 x 2.7 x 2.8 cm. There is flow within t he ovaries bilaterally. No adnexal masses are noted. IMPRESSION: Right ovarian cyst. .Carlyle Gillespie MD, MD Date Time Electronically viewed and signed by .Carlyle Gillespie MD, on 03/02/2017 00:44 .M/
[2017-03-02] MEDS ORDERED: IBUP-1542 PO (01:22)
--- NOTE | 2017-03-02 01:29 | ERD ---
ER Documentation Chief Complaint Date/Time DATE: 03/02/17 TIME: 01:25 Chief Complaint R SIDE ABDOMINAL CRAMPING FOR PAST FEW DAYS NO GI COMPALINTS HPI 26-year-old female patient with a past medical history of hypertension presents the ED complaining of lower abdominal pain that started during her ovulation. Reports that this happened about 3 days ago. States that she also has pain with sex. Reports that her last menses was on February 13, 2017. States that she had some slight bleeding noted at this time. States that she had tubal ligation. Reports that she did have one episode of nausea and bloody nonmucoid diarrhea. Denies any fever, chills, nausea, vomiting, vaginal discharge. ROS All systems reviewed and are negative except as per history of present illness. Medications Home Meds Active Scripts Ibuprofen* (Motrin*) 600 Mg Tab, 600 MG PO Q6, #30 TAB take with food Prov:FRANCES TALBOT PA-C 03/02/17 Acetaminophen* (Tylophen*) 500 Mg Capsule, 1 CAP PO Q6H Y for PAIN AND OR ELEVATED TEMP, #20 CAP Prov:YAZMIN JOE PA-C 10/09/16 Reported Medications Labetalol Hcl* (Labetalol Hcl*) 100 Mg Tablet, 100 MG PO BID, TAB 11/23/16 Ferrous Sulfate (Iron) 134 Mg Tablet, 134 MG PO, TAB 08/05/16 Allergies Allergies: Coded Allergies: No Known Allergy (Verified , 12/03/16) PMhx/Soc Medical and Surgical Hx: pt denies Medical Hx History of Surgery: Yes (CSECTIONS X3) Anesthesia Reaction: No Hx Neurological Disorder: No Hx Respiratory Disorders: No Hx Cardiac Disorders: Yes (htn) Hx Psychiatric Problems: No Hx Miscellaneous Medical Probl: Yes (ovarian cyst) Hx Alcohol Use: No Hx Substance Use: No Hx Tobacco Use: No Physical Exam Vitals Vital Signs Date Time Temp Pulse Resp B/P Pulse Ox O2 Delivery O2 Flow Rate FiO2 03/01/17 21:21 98.7 94 18 161/85 98 Physical Exam Const: [id number], well-nourished. In no acute distress. Head: Atraumatic, normocephalic Eyes: Normal Conjunctiva without injection. No purulent discharge. ENT: Normal external ear, nose. Moist oropharynx without tonsillar exudates. Non -erythematous pharynx. Uvula midline. No drooling. No trismus. Neck: No cervical midline tenderness. Full range of motion. No meningismus. No cervical lymphadenopathy. No JVD. Resp: Clear to auscultation bilaterally. No wheezing, rhonchi, rales, or crackles. No accessory muscle use. No retractions. Cardio: Regular rate and rhythm. No murmurs, rubs or gallops. Abd: Soft, slight right pelvic tenderness, non distended. Normal bowel sounds. No palpable masses. No rebound tenderness. No guarding. Negative McBurney's point. Negative psoas sign. Negative obturator sign. Skin: No petechiae or rashes Back: No midline tenderness. No CVA tenderness. Ext: No cyanosis, or edema. Neur: Awake and alert. Normal gait. Normal coordination. Psych: Normal Mood and Affect Result Diagram: 03/01/17224903/01/17 2250 Results 24 hrs Laboratory Tests Test 03/01/17 22:50 03/01/17 23:09 White Blood Count 8.010^3/ul Red Blood Count 4.5810^6/ul Hemoglobin 12.4g/dl Hematocrit 36.8% Mean Corpuscular Volume 80.3fl Mean Corpuscular Hemoglobin 27.1pg Mean Corpuscular Hemoglobin Concent 33.7g/dl Red Cell Distribution Width 13.4% Platelet Count 47271^3/UL Mean Platelet Volume 9.4fl Neutrophils % 49.8% Lymphocytes % 41.5% Monocytes % 6.8% Eosinophils % 1.1% Basophils % 0.4% Nucleated Red Blood Cells % 0.0/100WBC Neutrophils # 4.010^3/ul Lymphocytes # 3.310^3/ul Monocytes # 0.610^3/ul Eosinophils # 0.110^3/ul Basophils # 0.010^3/ul Nucleated Red Blood Cells # 0.010^3/ul Sodium Level 144mmol/L Potassium Level 3.8mmol/L Chloride Level 104mmol/L Carbon Dioxide Level 24mmol/L Anion Gap 20 Blood Urea Nitrogen 10mg/dl Creatinine 0.58mg/dl Glucose Level 97mg/dl Calcium Level 10.3mg/dl Total Bilirubin 0.1mg/dl Direct Bilirubin 0.00mg/dl Indirect Bilirubin 0.1mg/dl Aspartate Amino Transf (AST/SGOT) 27IU/L Alanine Aminotransferase (ALT/SGPT) 40IU/L Alkaline Phosphatase 78IU/L Total Protein 8.1g/dl Albumin 4.6g/dl Globulin 3.50g/dl Albumin/Globulin Ratio 1.31 Lipase 87U/L Urine Color YELLOW Urine Clarity SLIGHTLY CLOUDY Urine pH 5.0 Urine Specific [place] 1.027 Urine Ketones NEGATIVEmg/dL Urine Nitrite NEGATIVEmg/dL Urine Bilirubin NEGATIVEmg/dL Urine Urobilinogen NEGATIVEmg/dL Urine Leukocyte Esterase NEGATIVELeu/ul Urine Microscopic RBC 1/HPF Urine Microscopic WBC 0/HPF Urine Squamous Epithelial Cells FEW/HPF Urine Hemoglobin NEGATIVEmg/dL Urine Glucose NEGATIVEmg/dL Urine Total Protein NEGATIVEmg/dl Procedures/MDM This is a 26-year-old female patient with no significant past medical history presents the ED complaining of right-sided pelvic pain. Patient is afebrile and nontoxic-appearing. Patient has normal vital signs. Patient was further worked up with CBC, CMP, lipase, UA, urine , Patient's pain and symptoms have improved after treatment with CBC: No leukocytosis. No e/o of systemic infection. No e/o anemia. CMP: No e/o severe acidosis, alkalosis, renal failure, diabetic ketoacidosis, liver disease Lipase within normal limits. Urine: No leukocyte esterase, no nitrites, no hematuria. Urine : negative PROCEDURE: ULTRASOUND PELVIS - TRANSABDOMINAL ONLY CLINICAL INDICATION: 26-year-old female with pelvic pain. TECHNIQUE: Multiple sonographic images of the pelvis were obtained utilizing a transabdominal technique. The images were reviewed on a PACS workstation. COMPARISON: None. FINDINGS: The uterus is visualized and measures 8.6 x 3.6 x 5.8 cm. The endometrial echo complex is within normal limits and measures 8.1 mm. There is no evidence for free fluid. The right ovary has a normal echotexture and measures 3.7 x 2.7 x 3.3 cm. There is a right ovarian cyst measuring 2.0 x 2.0 x 2.3 cm. The left ovary has a normal echotexture and measures 3.7 x 2.7 x 2.8 cm. There is flow within the ovaries bilaterally. No adnexal masses are noted. IMPRESSION: Right ovarian cyst. Patient has a right ovarian cyst. A differential diagnosis considered includes but is not limited to gastritis, GERD, peptic ulcer disease, cholecystitis, choledocholithiasis, cholangitis, pancreatitis, appendicitis, bowel obstruction , ileus, volvulus, nephrolithiasis, pyelonephritis, hepatitis, perforated viscus , diverticulitis, abdominal hernia, acute abdomen, mesenteric ischemia or other emergent conditions. Discharge medications: Ibuprofen Follow up with primary care physician in 1-2 days for referral to an RIGHT OF WAY WORKER. Instructed patient to return to the ED sooner for any worsening symptoms. Patient's questions were answered. Patient understood and agreed with discharge plan. Patient discharged stable. Departure Diagnosis: Primary Impression: Abdominal pain Abdominal location: lower abdomen, unspecified Qualified Code: R10.30 - Lower abdominal pain Condition: Stable Patient Instructions: Abdominal Pain, What Are Ovarian Cysts? Referrals: KEAGAN PETTY (PCP) [facility] YOU HAVE RECEIVED A MEDICAL SCREENING EXAM AND THE RESULTS INDICATE THAT YOU DO NOT HAVE A CONDITION THAT REQUIRES URGENT TREATMENT IN THE EMERGENCY DEPARTMENT. FURTHER EVALUATION AND TREATMENT OF YOUR CONDITION CAN WAIT UNTIL YOU ARE SEEN IN YOUR DOCTORS OFFICE WITHIN THE NEXT 1-2 DAYS. IT IS YOUR RESPONSIBILITY TO MAKE AN APPOINTMENT FOR FOLOW-UP CARE. IF YOU HAVE A PRIMARY DOCTOR --you should call your primary doctor and schedule an appointment IF YOU DO NOT HAVE A PRIMARY DOCTOR YOU CAN CALL OUR PHYSICIAN REFERRAL HOTLINE AT IF YOU CAN NOT AFFORD TO SEE A PHYSICIAN YOU CAN CHOSE FROM THE FOLLOWING [facility] [address] [facility]. [facility] [address] [facility] [address] [facility] [address] [facility] [address] [facility]. [facility]. [address] [facility] YOU HAVE RECEIVED A MEDICAL SCREENING EXAM AND THE RESULTS INDICATE THAT YOU DO NOT HAVE A CONDITION THAT REQUIRES URGENT TREATMENT IN THE EMERGENCY DEPARTMENT. FURTHER EVALUATION AND TREATMENT OF YOUR CONDITION CAN WAIT UNTIL YOU ARE SEEN IN YOUR DOCTORS OFFICE WITHIN THE NEXT 1-2 DAYS. IT IS YOUR RESPONSIBILITY TO MAKE AN APPOINTMENT FOR FOLOW-UP CARE. IF YOU HAVE A PRIMARY DOCTOR --you should call your primary doctor and schedule and appointment IF YOU DO NOT HAVE A PRIMARY DOCTOR YOU CAN CALL OUR PHYSICIAN REFERRAL HOTLINE AT . IF YOU CAN NOT AFFORD TO SEE A PHYSICIAN YOU CAN CHOSE FROM THE FOLLOWING [facility] INSTITUTIONS: [facility] [address] [place] [address] [facility] [address] [place] [address] [facility] [address] [place] [address] [facility]ENT [facility]SPECIALTIES Additional Instructions: Call your primary care doctor TOMORROW for an appointment during the next 2-3 days for a referral to see an RIGHT OF WAY WORKER. See the doctor sooner or return here if your condition worsens before your appointment time - fever, worsening abdominal pain, vomiting, bloody diarrhea, etc. FRANCES TALBOT PA-C Mar 02, 2017 01:28
== END 2017-03-02 01:30 | disposition home or self-care (01) ==
LOC: FTE 20:51 → E/R 03-02 01:30
DX: R10.30 Lower abdominal pain, unspecified (principal); I10 Essential (primary) hypertension; R10.2 Pelvic and perineal pain
CPT/HCPCS: 76856; 80053; 81001; 81003; 83690; 85025

== ENCOUNTER 2017-07-16 16:58 | Emergency (ER) | payer OTHER ==
[~2017-07-16] VITALS: Ht 160 cm; Wt 101.0 kg
[~2017-07-16 16:58] MED LIST changes: +IBUP-1542 PO
[2017-07-16 17:01] VITALS: Ht 160 cm; Wt 101.0 kg
[2017-07-16] MEDS ORDERED: morphine 4 MG/ML VIAL IV STA (17:35)
[2017-07-16] MEDS ORDERED: ONDANSETRON 4 MG INJ IV STA (17:35)
[2017-07-16 18:09] LABS: BASOPHILS % 0.4 % (0.0-2.0); EOSINOPHILS # 0.1 10^3/ul (0.0-0.5); EOSINOPHILS % 0.9 % (0.0-7.0); HEMATOCRIT 36.1 % (37.0-47.0); HEMOGLOBIN 12.2 g/dl (12.0-16.0); LYMPHOCYTES # 3.1 10^3/ul (0.8-2.9); LYMPHOCYTES % 38.3 % (15.0-51.0); MEAN CORPUSCULAR HEMOGLOBIN 27.3 pg (29.0-33.0); MEAN CORPUSCULAR HGB CONC 33.8 g/dl (32.0-37.0); MEAN CORPUSCULAR VOLUME 80.8 fl (82.0-101.0); MEAN PLATELET VOLUME 9.5 fl (7.4-10.4); MONOCYTE # 0.6 10^3/ul (0.3-0.9); MONOCYTES % 7.4 % (0.0-11.0); NEUTROPHIL # 4.3 10^3/ul (1.6-7.5); NEUTROPHILS % 52.8 % (39.0-77.0); PLATELET COUNT 344 10^3/UL (140-415); RED BLOOD COUNT 4.47 10^6/ul (4.20-5.40); RED CELL DISTRIBUTION WIDTH 13.4 % (11.5-14.5); WHITE BLOOD COUNT 8.2 10^3/ul (4.8-10.8)
[2017-07-16 18:14] LABS: ADD UMIC NO; UR ASCORBIC ACID NEGATIVE (NEGATIVE); UR BILIRUBIN (Dip) NEGATIVE (NEGATIVE); UR BLOOD (Dip) NEGATIVE (NEGATIVE); UR CLARITY CLEAR (CLEAR); UR COLOR YELLOW (YELLOW); UR GLUCOSE (Dip) NEGATIVE (NEGATIVE); UR KETONES (Dip) NEGATIVE (NEGATIVE); UR LEUKOCYTE ESTERASE (Dip) NEGATIVE Leu/ul (NEGATIVE); UR NITRITE (Dip) NEGATIVE (NEGATIVE); UR SPECIFIC GRAVITY (Dip) 1.021 (1.003-1.030); UR TOTAL PROTEIN (Dip) NEGATIVE (NEGATIVE); UR UROBILINOGEN (Dip) NEGATIVE (NEGATIVE)
[2017-07-16 18:25] LABS: ALBUMIN 4.3 g/dl (3.3-4.9); ALBUMIN/GLOBULIN RATIO 1.19; BILIRUBIN,INDIRECT 0.1 mg/dl (0-1.1); BILIRUBIN,TOTAL 0.1 mg/dl (0.2-1.3); CALCIUM 9.6 mg/dl (8.4-10.2); CREATININE 0.83 mg/dl (0.44-1.00); POTASSIUM 4.2 mmol/L (3.5-5.1); TOTAL PROTEIN 7.9 g/dl (6.1-8.1)
--- NOTE | 2017-07-16 18:29 | RADRPT ---
AMENDMENT: 07/16/2017 6:49:32 PM Duane Knight Doppler signals indicating blood flow are present within both ovaries. PROCEDURE: Pelvic ultrasound. CLINICAL INDICATION: Pelvic pain TECHNIQUE: Ko scale, color doppler, spectral doppler ultrasound of the pelvis was performed with transabdominal and transvaginal transducers. COMPARISON: US PELVIS 03/01/2017 FINDINGS: Uterus: Position: Anteverted. Normal myometrial echogenicity. Normal appearance of the endometrium. A few small Nabothian cysts are present. Ovaries: Normal appearing right ovary. Normal appearing left ovary. No adnexal masses. A few normal appearing sub-centimeter follicles are seen in each ovary. Free fluid: None. Measurements: Endometrium (cm): 1.4 Uterus (cm): 8.8 x 4.4 x 6.1 Right ovary (cm): 2.9 x 2.5 x 2.2 Left ovary (cm): 3.2 x 2.0 x 2.4 IMPRESSION: Normal examination. RPTAT: AADD .Duane Joe MD, MD Date Time Electronically viewed and signed by .Duane Joe MD, MD on 07/16/2017 18:50 .B/
--- NOTE | 2017-07-16 18:48 | ERD ---
ER Documentation Chief Complaint Chief Complaint pelvic pain today HPI This 27-year-old female who presents the emergency department today complaining of right-sided pelvic pain. Patient states that she has a history of ovarian cyst on the right side. States that she was taking control pills for period of time her period was very regular and had bleeding for long periods of time. 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 Denies any vomiting, fevers or chills, dysuria. ROS All systems reviewed and are negative except as per history of present illness. Medications Home Meds Active Scripts Acetaminophen* (Tylophen*) 500 Mg Capsule, 1 CAP PO Q6H Y for PAIN AND OR ELEVATED TEMP, #30 CAP Prov:JOANN FITCH PA-C 07/16/17 Naproxen* (Naprosyn*) 500 Mg Tablet, 500 MG PO BID Y for PAIN AND/OR INFLAMMATION, #30 TAB Prov:JOANN FITCH PA-C 07/16/17 Ibuprofen* (Motrin*) 600 Mg Tab, 600 MG PO Q6, #30 TAB take with food Prov:FRANCES TALBOT PA-C 03/02/17 Acetaminophen* (Tylophen*) 500 Mg Capsule, 1 CAP PO Q6H Y for PAIN AND OR ELEVATED TEMP, #20 CAP Prov:YAZMIN JOE PA-C 10/09/16 Reported Medications Labetalol Hcl* (Labetalol Hcl*) 100 Mg Tablet, 100 MG PO BID, TAB 11/23/16 Ferrous Sulfate (Iron) 134 Mg Tablet, 134 MG PO, TAB 08/05/16 Allergies Allergies: Coded Allergies: No Known Allergy (Verified , 12/03/16) PMhx/Soc History of Surgery: Yes (CSECTIONS X3) Anesthesia Reaction: No Hx Neurological Disorder: No Hx Respiratory Disorders: No Hx Cardiac Disorders: Yes (htn) Hx Psychiatric Problems: No Hx Miscellaneous Medical Probl: Yes (rt ovarian cyst) Hx Alcohol Use: No Hx Substance Use: No Hx Tobacco Use: No Smoking Status: Never smoker Physical Exam Vitals Vital Signs Date Time Temp Pulse Resp B/P Pulse Ox O2 Delivery O2 Flow Rate FiO2 07/16/17 19:46 72 20 111/57 97 Room Air 07/16/17 17:01 98.9 77 18 143/77 99 Physical Exam Const: NAD Head: Atraumatic Eyes: Normal Conjunctiva ENT: Normal External Ears, Nose and Mouth. Neck: Full range of motion..~ No meningismus. Resp: Clear to auscultation bilaterally Cardio: Regular rate and rhythm, no murmurs Abd: Soft, right sided pelvic pain non distended. Normal bowel sounds. No tenderness at MCBurney's Skin: No petechiae or rashes Back: No midline or flank tenderness Ext: No cyanosis, or edema Neur: Awake and alert Psych: Normal Mood and Affect Result Diagram: 07/16/17175507/16/171755 Results 24 hrs Laboratory Tests Test 07/16/17 17:30 07/16/17 17:56 Urine Color YELLOW Urine Clarity CLEAR Urine pH 6.0 Urine Specific [place] 1.021 Urine Ketones NEGATIVEmg/dL Urine Nitrite NEGATIVEmg/dL Urine Bilirubin NEGATIVEmg/dL Urine Urobilinogen NEGATIVEmg/dL Urine Leukocyte Esterase NEGATIVELeu/ul Urine Hemoglobin NEGATIVEmg/dL Urine Glucose NEGATIVEmg/dL Urine Total Protein NEGATIVEmg/dl White Blood Count 8.210^3/ul Red Blood Count 4.4710^6/ul Hemoglobin 12.2g/dl Hematocrit 36.1% Mean Corpuscular Volume 80.8fl Mean Corpuscular Hemoglobin 27.3pg Mean Corpuscular Hemoglobin Concent 33.8g/dl Red Cell Distribution Width 13.4% Platelet Count 75823^3/UL Mean Platelet Volume 9.5fl Neutrophils % 52.8% Lymphocytes % 38.3% Monocytes % 7.4% Eosinophils % 0.9% Basophils % 0.4% Nucleated Red Blood Cells % 0.0/100WBC Neutrophils # 4.310^3/ul Lymphocytes # 3.110^3/ul Monocytes # 0.610^3/ul Eosinophils # 0.110^3/ul Basophils # 0.010^3/ul Nucleated Red Blood Cells # 0.010^3/ul Sodium Level 140mmol/L Potassium Level 4.2mmol/L Chloride Level 106mmol/L Carbon Dioxide Level 26mmol/L Anion Gap 12 Blood Urea Nitrogen 11mg/dl Creatinine 0.83mg/dl Glucose Level 75mg/dl Calcium Level 9.6mg/dl Total Bilirubin 0.1mg/dl Direct Bilirubin 0.00mg/dl Indirect Bilirubin 0.1mg/dl Aspartate Amino Transf (AST/SGOT) 35IU/L Alanine Aminotransferase (ALT/SGPT) 54IU/L Alkaline Phosphatase 77IU/L Total Protein 7.9g/dl Albumin 4.3g/dl Globulin 3.60g/dl Albumin/Globulin Ratio 1.19 Current Medications Medications (Trade) Dose Ordered Sig/Afua Route PRN Reason Start Time Stop Time Status Last Admin Dose Admin Morphine Sulfate (morphine) 4 mg ONCE STAT IV 07/16/17 17:35 07/16/17 17:37 DC 07/16/17 17:53 Ondansetron HCl (Zofran Inj) 4 mg ONCE STAT IV 07/16/17 17:35 07/16/17 17:37 DC 07/16/17 17:53 Ketorolac Tromethamine (Toradol) 30 mg ONCE STAT IV 07/16/17 18:53 07/16/17 18:54 DC 07/16/17 19:03 DIAGNOSTIC IMAGING REPORT Patient: TRACY NIEVES : 1990 Age: 27 Sex: F MR #: [id number] DOS: 07/16/17 0000 Ordering MD: JOANN FITCH PA-C Location: E Room/Bed: AMENDMENT: 07/16/2017 6:49:32 PM Duane Joe M.d Symmetric Doppler signals indicating blood flow are present within both ovaries. PROCEDURE: Pelvic ultrasound. CLINICAL INDICATION: Pelvic pain TECHNIQUE: Ko scale, color doppler, spectral doppler ultrasound of the pelvis was performed with transabdominal and transvaginal transducers. COMPARISON: US PELVIS 03/01/2017 FINDINGS: Uterus: Position: Anteverted. Normal myometrial echogenicity. Normal appearance of the endometrium. A few small Nabothian cysts are present. Ovaries: Normal appearing right ovary. Normal appearing left ovary. No adnexal masses. A few normal appearing sub-centimeter follicles are seen in each ovary. Free fluid: None. Measurements: Endometrium (cm): 1.4 Uterus (cm): 8.8 x 4.4 x 6.1 Right ovary (cm): 2.9 x 2.5 x 2.2 Left ovary (cm): 3.2 x 2.0 x 2.4 IMPRESSION: Normal examination. RPTAT: AADD .Duane Joe MD, MD Date Time Electronically viewed and signed by .Duane Joe MD, MD on 07/16/2017 18:50 .B/ CC: JOANN FITCH PA-C DIAGNOSTIC IMAGING REPORT Patient: TRACY NIEVES : 1990 Age: 27 Sex: F MR #: [id number] DOS: 07/16/177 Ordering MD: JOANN FITCH PA-C [facility]: [facility] Room/Bed: PROCEDURE: CT abdomen and pelvis without contrast. CLINICAL INDICATION: Right flank and Abdominal Pain TECHNIQUE: CT scan of the abdomen and pelvis without contrast was performed and is reconstructed at 2.5 mm contiguous axial intervals from the dome of the diaphragm to the inferior pubic rami.. The patient was scanned without intravenous contrast. Sagittal and coronal reformatted images were obtained from the axial source images. The calculated radiation dose measures 1306 mGy centimeters. The CTDI measures 23 mGy. Individualized dose optimization technique was used for the performance of this exam. This included 1. Automated exposure control. 2. Adjustment of the mA and / or kV according to the patient's size. 3. Use of iterative reconstructed technique. COMPARISON: CT abdomen pelvis February 09, 2016 FINDINGS: The lung bases are clear of any infiltrate or nodule. No effusion is seen. The liver is enlarged measuring 19 cm in length. There is fatty infiltration. There is no mass or ductal dilatation. No gallstones are visualized. No splenic, adrenal or pancreatic abnormalities present. Kidneys are of normal size and contour. No hydronephrosis, calculus or masses seen. Ureters are of normal course and caliber with no stone. No bladder mass or stone is present. Uterus appears normal. No adnexal mass is identified. There is no aneurysm. No adenopathy is present. No bowel mass or obstruction is present. The appendix is normal. No phlegmon , ascites or pneumoperitoneum is visualized. The osseous structures are intact. IMPRESSION: No evidence of urolithiasis, obstructive uropathy, diverticulitis or appendicitis. Enlarged fatty liver. .Uri Warren MD, MD Date Time Electronically viewed and signed by .Uri Warren MD, on 07/16/2017 20: 17 .A/ CC: JOANN FITCH PA-C Procedures/MDM This is a 27-year-old female who presents emergency department today complaining of right-sided pelvic pain and some right-sided back pain. Patient does have a history of ovarian cysts. On physical exam she had pelvic tenderness and therefore did obtain laboratory work as well as an ultrasound Laboratory workup shows no elevated white blood cell count. Hemoglobin is within normal limits. Liver enzymes are within normal limits. Glucose is within normal limits. Liver enzymes are within normal limits. UA is negative for infection. test is negative. Ultrasound is unremarkable. There are a few normal-appearing subcentimeter follicle seen in each ovary. There is no free fluid. There are no adnexal masses. Speak to the radiologist who read the ultrasound he reported that there is Doppler flow to both ovaries. He indicated he would make an addendum. Patient was continuing to complain of pain despite being given morphine and was therefore given Toradol. She still complained of pain and therefore I explained to the patient that I could obtain a CT abdomen pelvis for her given her persistent pain complaints and patient accepted. CT abdomen pelvis shows no evidence of urolithiasis obstructive uropathy, diverticulitis or appendicitis. There is no bowel mass or obstruction present. There is an enlarged fatty liver. Symptoms at this time is consistent with pelvic pain of uncertain etiology. Low suspicion for ectopic , to ovarian abscess, ovarian torsion. Low suspicion for acute surgical abdomen. Patient has no midline tenderness and I have low suspicion for acute fracture dislocation, cauda equina, abscess, nephrolithiasis or pyelonephritis. She was instructed to follow-up with her primary care doctor and B2B APPOINTMENT SETTER for further evaluation. Given morphine and Zofran here in the emergency department. She will be given a prescription for Naprosyn, Tylenol for home. At this time the patient is stable for discharge and outpatient management. Patient should follow up with their PCP in the next 1-2 days. They may return to the emergency department sooner for any persistent or worsening of symptoms. Patient understood and agreed with the plan. Departure Diagnosis: Primary Impression: Pelvic pain Additional Impression: Back pain Back pain location: low back pain Chronicity: acute Back pain laterality: right Sciatica presence: without sciatica Qualified Code: M54.5 - Acute right-sided low back pain without sciatica Condition: JOANN Arce PA-C Jul 16, 2017 18:48
[2017-07-16] MEDS ORDERED: KETOROLAC 30 MG INJ IV STA (18:53)
[2017-07-16 19:46] VITALS: BP 111/57; PULSE 72; RESP 20
--- NOTE | 2017-07-16 20:17 | RADRPT ---
PROCEDURE: CT abdomen and pelvis without contrast. CLINICAL INDICATION: Right flank and Abdominal Pain TECHNIQUE: CT scan of the abdomen and pelvis without contrast was performed and is reconstructed a t 2.5 mm contiguous axial intervals from the dome of the diaphragm to the inferior pubic rami.. The patient was scanned without intravenous contrast. Sagittal and coronal reformatted images were obt ained from the axial source images. The calculated radiation dose measures 1306 mGy centimeters. The CTDI measures 23 mGy. Individualized dose optimization technique was used for the performance of this exam. This included 1. Automated exposure control. 2. Adjustment of the mA and / or kV according to the patient's size. 3. Use of iterative reconstructed technique. COMPARISON: CT abdomen pelvis February 09, 2016 FINDINGS: The lung bases are clear of any infiltrate or nodule. No effusion is seen. The liver is enlarged measuring 19 cm in length. There is fatty infiltration. There is no mass or du ctal dilatation. No gallstones are visualized. No splenic, adrenal or pancreatic abnormalities pre sent. Kidneys are of normal size and contour. No hydronephrosis, calculus or masses seen. Ureters are o f normal course and caliber with no stone. No bladder mass or stone is present. Uterus appears norm al. No adnexal mass is identified. There is no aneurysm. No adenopathy is present. No bowel mass or obstruction is present. The appendix is normal. No phlegmon, ascites or pneumop eritoneum is visualized. The osseous structures are intact. IMPRESSION: No evidence of urolithiasis, obstructive uropathy, diverticulitis or appendicitis. Enlarged fatty liver. .Uri Warren MD, Date Time Electronically viewed and signed by .Uri Warren MD, MD on 07/16/2017 20:17 .A/
[2017-07-16] MEDS ORDERED: NAPR-260 PO (20:30)
[2017-07-16] MEDS ORDERED: ACET500C5 PO (20:31)
== END 2017-07-16 20:42 | disposition home or self-care (01) ==
LOC: FTE 16:58
DX: R10.2 Pelvic and perineal pain (principal); M54.5 Low back pain; I10 Essential (primary) hypertension
CPT/HCPCS: 36415; 74176; 76830; 76856; 80053; 81003; 85025; 96374; 96375; J1885; J2270; J2405; Z7502

== ENCOUNTER 2017-10-16 19:43 | Emergency (ER) | END 2017-10-17 00:12 | disposition home or self-care (01) ==

== ENCOUNTER 2018-03-30 11:07 | Emergency (ER) | END 2018-03-30 16:42 | disposition home or self-care (01) ==